=== PATIENT | male | born 1985 | race Caucasian/White ===

== ENCOUNTER 2017-07-23 13:47 | Inpatient (IN) ==
--- NOTE | 2017-07-23 14:01 | Emergency Department Note ---
Disposition Clinical Impression: Anemia Qualifiers: Anemia type: iron deficiency Iron deficiency anemia type: chronic blood loss Qualified Code(s): D50.0 - Iron deficiency anemia secondary to blood loss ( chronic) Disposition: Admitted As Inpatient Condition: Fair Referrals: Mary Saunders GRAIN MILL WORKER [Primary Care Provider] - Forms: ED Satisfaction Letter, Work/School Release General Adult HPI - General Chief complaint: ED General Medical Stated complaint: "iron deficiency hgb low" Time Seen by Provider: 07/23/17 13:51 - History of Present Illness HPI Narrative: 31 yo M c PMhx of Ulcerative Colitis, Iron Deficiency Anemia presents to the ED c/o persistently worsening fatigue and lightheadedness. Patient has chronic hematochezia secondary to UC. Patient has required transfusions in the past when living in [place]. Patient established with Dr. Riley with GI. Last Hgb 07/14 7.5 at that appointment. Pt is scheduled to start injectafer on 07/28/17 Scheduled to have Entyvio the same day. prior Hgbs in our system 05/23/17 8.9, 06/07/17 10.2, 06/08/17 8.8, 06/09/17 8.9. May Admission to [facility] for acute pancreatitis. Patient also has chronic abdominal pain secondary to his ulcerative colitis. He reports this feels like his normal pain, but overall his symptoms have been worse over the past few weeks. Gladys reports throwing up once but denies blood in vomit. Carolina reports not being fully compliant with his oral iron supplementation. Pain Scale: 4 - Related Data Previous Rx's Medication Instructions Recorded Ascorbic Acid [Vitamin C] 500 mg PO DAILY #30 tablet 06/09/17 Ferrous Sulfate 325 mg PO DAILY #30 tablet 06/09/17 Allergies Allergy/AdvReac Type Severity Reaction Status Date / Time Cefaclor [From [facility]] Allergy Anaphylaxis Verified 06/07/17 12:22 Review of Systems: As Per HPI Past Medical History - Past Medical History Medical history: Reports: other Psychiatric history: Reports: depression - Social History Smoking Status: Former smoker Smokeless Tobacco Status: No Alcohol use: Reports: none Drug use: Reports: none Physical Exam - General Limitations: no limitations General appearance: alert, in no apparent distress - Head Head exam: atraumatic, normocephalic - Eye Eye exam: Present: PERRL, other (pale conjunctiva) - ENT ENT exam: normal oropharynx, other (pale blue lips) - Neck Neck exam: Present: full ROM, trachea midline - Chest Chest inspection: Present: symmetric chest wall rise. Absent: tenderness - Respiratory Respiratory exam: Present: normal lung sounds bilaterally. Absent: respiratory distress - Cardiovascular Cardiovascular exam: Present: normal rhythm, tachycardia - Abdominal Exam Abdominal exam: Present: soft, tenderness Abdominal tenderness: Present: suprapubic (and periumbilical), mild - Extremities Exam Extremities exam: Present: full ROM. Absent: tenderness - Neurological Exam Neurological exam: Present: alert, oriented X3 - Psychiatric Psychiatric exam: Present: normal affect, normal mood - Skin Skin exam: Present: warm, dry, pallor Course Course Narrative: patient with Hx of Iron Deficiency anemia, Ulcerative colitis. Patient hgb on was 7.5 patient markedly pale. Will likely require transfusion. Will check CBC, BMP, Type and Screen. Will order 2 units PRBC after hgb result - Consultations Consultation #1: Discussed case with Patient's GI doctor Dr. Riley. He agreed that patient is symptomatic of anemia and need to be admitted for blood transfusion and IV iron. Will call hospitalist for admission. Consultation #2: Discussed case with admitting hospitalist who agreed to accept the patient for admission. Vital Signs Temperature 98.6 F 07/23/17 13:48 Pulse Rate 108 07/23/17 13:48 Respiratory Rate 16 07/23/17 13:48 Blood Pressure 110/75 07/23/17 13:48 O2 Sat by Pulse Oximetry 100 07/23/17 13:48 Temperature 98.6 F 07/23/17 13:57 Pulse Rate 108 07/23/17 13:57 Respiratory Rate 16 07/23/17 13:57 Blood Pressure 110/75 07/23/17 13:57 O2 Sat by Pulse Oximetry 100 07/23/17 13:57 Oxygen Delivery Oxygen Delivery Room Air Medical Decision Making - MDM Narrative Medical decision making narrative: patient with Hx of Iron Deficiency anemia, Ulcerative colitis. Patient hgb on was 7.5 patient markedly pale. Will likely require transfusion. Hgb 7.7 today but very symptomatic. Will admit for transfusion. Discussed case with GI who agreed patient needs to be admitted for transfusion. - Medical Records Medical records reviewed: Yes I reviewed the patient's medical records. - Lab Data Result diagrams: 07/23/17 14:08 Lab Results 07/23/17 Range/Units 14:08 WBC 7.2 (4.3-11.1) K/mcL RBC 3.82 L (4.19-5.50) M/mcL Hgb 7.7 L (12.9-16.9) g/dL Hct 27.9 L (37.5-50.1) % MCV 73.0 L (83.0-100.0) fL MCH 20.2 L (28.0-33.3) pg MCHC 27.6 L (31.6-35.5) g/dL RDW 16.8 H (11.5-14.5) % Plt Count 701 H (140-400) K/mcL MPV 9.1 L (9.4-12.4) fL Immature Gran % 0.6 (0-4) % Seg Neutrophils % 51.7 % Lymphocytes % 31.0 % Monocytes % 12.3 % Eosinophils % 3.1 % Basophils % 1.3 % Neutrophils # 3.7 (1.6-8.9) K/mcL Lymphocytes # 2.2 (0.6-4.6) K/mcL Monocytes # 0.9 (0.0-1.3) K/mcL Eosinophils # 0.2 (0.0-0.6) K/mcL Basophils # 0.1 (0.0-0.2) K/mcL Platelet Estimate Increased H (Normal) Hypochromasia Present A (Not Present) Anisocytosis 1+ A (Not Present) Attestation Statement - Attestation Attestation: I, Armando Cuba DO, examined this patient [id number] and my medical decision-making was reviewed with Farooq Biswas PGY-1, Resident Physician. I agree with the documented findings, disposition and treatment plan as described except to the extent set forth below. Please see my progress notes for details.
[2017-07-23] MEDS ORDERED: 0.9 % Sodium Chloride 1,000 ML IVC ONE (14:16)
[2017-07-23 14:26] LABS: Basophils # 0.1 K/mcL (0.0-0.2); Basophils % 1.3 %; Eosinophils # 0.2 K/mcL (0.0-0.6); Eosinophils % 3.1 %; Hematocrit 27.9 % (37.5-50.1); Hemoglobin 7.7 g/dL (12.9-16.9); Immature Granulocytes % 0.6 % (0-4); Lymphocytes # 2.2 K/mcL (0.6-4.6); Mean Corpuscular HGB Conc 27.6 g/dL (31.6-35.5); Mean Corpuscular Hemoglobin 20.2 pg (28.0-33.3); Mean Platelet Volume 9.1 fL (9.4-12.4); Monocytes # 0.9 K/mcL (0.0-1.3); Monocytes % 12.3 %; Neutrophils # 3.7 K/mcL (1.6-8.9); Platelet Count 701 K/mcL (140-400); Red Blood Count 3.82 M/mcL (4.19-5.50); Red Cell Distribution Width 16.8 % (11.5-14.5); Segmented Neutrophils % 51.7 %
[2017-07-23 14:30] LABS: Anisocytosis 1+ (Not Present); Hypochromasia Present (Not Present); Platelet Estimate Increased (Normal)
--- NOTE | 2017-07-23 14:35 | Emergency Department Note ---
Disposition Clinical Impression: Hematochezia Anemia Qualifiers: Anemia type: unspecified type Qualified Code(s): D64.9 - Anemia, unspecified Disposition: Admitted As Inpatient Condition: Fair Time of Disposition: 15:13 General Adult HPI - General Chief complaint: ED General Medical Stated complaint: "iron deficiency hgb low" Time Seen by Provider: 07/23/17 13:51 Limitations: no limitations - History of Present Illness Pain Scale: 4 - Related Data Previous Rx's Medication Instructions Recorded Ascorbic Acid [Vitamin C] 500 mg PO DAILY #30 tablet 06/09/17 Ferrous Sulfate 325 mg PO DAILY #30 tablet 06/09/17 Allergies Allergy/AdvReac Type Severity Reaction Status Date / Time Cefaclor [From [facility]] Allergy Anaphylaxis Verified 06/07/17 12:22 Past Medical History - Past Medical History Medical history: Reports: other Psychiatric history: Reports: depression - Social History Smoking Status: Former smoker Smokeless Tobacco Status: No Alcohol use: Reports: none Drug use: Reports: none Physical Exam - General Limitations: no limitations General appearance: alert, in no apparent distress Course Vital Signs Temperature 98.6 F 07/23/17 13:48 Pulse Rate 108 07/23/17 13:48 Respiratory Rate 16 07/23/17 13:48 Blood Pressure 110/75 07/23/17 13:48 O2 Sat by Pulse Oximetry 100 07/23/17 13:48 Temperature 98.6 F 07/23/17 13:57 Pulse Rate 108 07/23/17 13:57 Respiratory Rate 16 07/23/17 13:57 Blood Pressure 110/75 07/23/17 13:57 O2 Sat by Pulse Oximetry 100 07/23/17 13:57 Oxygen Delivery Oxygen Delivery Room Air Medical Decision Making - Lab Data Result diagrams: 07/23/17 14:08 Lab Results 07/23/17 07/23/17 Range/Units 14:08 14:20 WBC 7.2 (4.3-11.1) K/mcL RBC 3.82 L (4.19-5.50) M/mcL Hgb 7.7 L (12.9-16.9) g/dL Hct 27.9 L (37.5-50.1) % MCV 73.0 L (83.0-100.0) fL MCH 20.2 L (28.0-33.3) pg MCHC 27.6 L (31.6-35.5) g/dL RDW 16.8 H (11.5-14.5) % Plt Count 701 H (140-400) K/mcL MPV 9.1 L (9.4-12.4) fL Immature Gran % 0.6 (0-4) % Seg Neutrophils % 51.7 % Lymphocytes % 31.0 % Monocytes % 12.3 % Eosinophils % 3.1 % Basophils % 1.3 % Neutrophils # 3.7 (1.6-8.9) K/mcL Lymphocytes # 2.2 (0.6-4.6) K/mcL Monocytes # 0.9 (0.0-1.3) K/mcL Eosinophils # 0.2 (0.0-0.6) K/mcL Basophils # 0.1 (0.0-0.2) K/mcL Platelet Estimate Increased H (Normal) Hypochromasia Present A (Not Present) Anisocytosis 1+ A (Not Present) Blood Type O POSITIVE Critical Care Time Critical Care Time: Yes Total Critical Care Time: 35 Attestation: Critical care performed: Time is exclusive of separately billable procedures. Time includes: direct patient care, patient reassessment, coordination of patient care, interpretation of data (laboratory data, radiology data, and respiratory data), review of patient's medical records, medical consultation and documentation of patient care. Procedures included in critical care time: Procedures excluded from critical care time: Attestation Statement - Attestation Attestation: I, Armando Cuba DO, examined this patient [id number] and my medical decision-making was reviewed with Farooq Biswas PGY-1, Resident Physician. I agree with the documented findings, disposition and treatment plan as described except to the extent set forth below. Please see my progress notes for details. 31-year-old male presents emergency room for generalized weakness malaise and feeling like his lips turned blue. Patient has a history of iron deficiency anemia secondary to chronic ulcerative colitis. He is been seen and evaluated and treated by gastroenterology in the outpatient setting. He was seen earlier this week and had labs drawn. There were scheduling outpatient treatment including iron infusions as well as treatment for his ulcerative colitis. The patient has not completed any other regimen this time. He has not been diligent with his iron supplementation treatment at home by mouth as well. Patient is alert and oriented and answers questions. He is very pale on presentation. His conjunctiva spell. Oral mucosa is patent and there is a decreased color to the underside of his tongue at this point. Patient's heart rate is elevated in the 130s. Patient will be started with fluids and have CBC chemistry type and screen ordered at this time. Patient will also require transfusion admission secondary to the anemia causing symptomatic presentation. Patient is chronically losing blood per rectum. See detailed documentation of physical exam, medical intervention, medical decision-making and disposition in the resident physician's note. Patient will be provided critical care of the patient does required transfusion. 1435 Patient found to have a hemoglobin is 7.7 which is elevated compared to his previous evaluation of the gastric neurologist office. Consultation was had with gastroenterology recommended transfusing 2 units and admitting the patient secondary to symptomatic presentation. Patient is otherwise stable. 35 minutes critical care applied. Admission process to be completed.
[2017-07-23 15:33] LABS: BUN/Creatinine Ratio 15 (6-26); Blood Urea Nitrogen 15 mg/dL (6-20); Calcium 9.2 mg/dL (8.6-10.3); Carbon Dioxide 27 mEq/L (23-29); Chloride 103 mEq/L (98-107); Glucose 95 mg/dL (70-105); Osmolality,Calculated 285 (280-300); Potassium 3.8 mEq/L (3.5-5.1); Sodium 137 mEq/L (136-145); eGFR For African Americans > 60 (> 60); eGFR For Non-African Americans > 60 (> 60)
[2017-07-23] MEDS ORDERED: 0.9 % Sodium Chloride 250 ML ONE ×2 (16:31→20:09)
--- NOTE | 2017-07-23 18:18 | Internal Med History&Physical ---
Date of Encounter: 07/23/17 Time of Encounter: 07:00 Internal Medicine - H&P: HPI Chief complaint: fatigue and lightheadedness. History of present illness: Mr. Esquivel is a 31 year old male PMhx of Ulcerative Colitis, Iron Deficiency Anemia and chronic hematochezia secondary to UC presents to the ED c/o persistently worsening fatigue and lightheadedness associated with abdominal pain that is chronic UC . The patient was evaluated and his CBC revealed anemia of 7, GI was consulted and recommended admition for further evaluation. Past Med Surg Social Fam HX - Past Medical History Medical history: other Psychiatric history: depression - Social History Smoking Status: Former smoker Smokeless Tobacco Status: No Alcohol use: none Drug use: none Internal Medicine - H&P: Meds No Known Home Drugs 07/23/17 [History] 3 Allergy/AdvReac Type Severity Reaction Status Date / Time Cefaclor [From Ceclor] Allergy Anaphylaxis Verified 06/07/17 12:22 All Systems PM: A 10-system review of systems was performed and is negative for pertinent findings except as documented above in the HPI. - Constitutional Constitutional: fatigue, weakness, no chills, no fever(s), no night sweats - Cardiovascular Cardiovascular ROS IM: no chest pain, no diaphoresis, no dyspnea, no lightheadedness, no palpitations, no syncope - Respiratory Respiratory: no cough, no dyspnea, no wheezing, no excessive phlegm production - Gastrointestinal Gastrointestinal: abdominal pain, diarrhea, hematochezia, no hematemesis, no melena, no nausea, no vomiting - Neurological Neurological ROS: no confusion, no convulsions, no focal weakness, no numbness, no tingling, no tremor(s) - Constitutional Vitals: Temp Pulse Resp BP Pulse Ox 98.3 F 108 18 100/67 97 07/23/17 17:14 07/23/17 17:14 07/23/17 17:14 07/23/17 17:14 07/23/17 17:14 General appearance: Present: A&O X 3 - Head Head exam: Present: atraumatic, normocephalic - Neck Neck exam general surgery: Present: supple, trachea midline. Absent: lymphadenopathy - Respiratory Respiratory exam: Present: CTAB. Absent: accessory muscle use, rales, rhonchi, wheezes - Cardiovascular Cardiovascular exam: Present: RRR, +S1, +S2. Absent: diastolic murmur, gallop, rubs, systolic murmur - GI/Abdominal GI/Abdominal exam: Present: normal bowel sounds, soft, no peritoneal signs. Absent: distended, tenderness - Extremities Exam Extremities exam: Present: warm, radial pulses palpable and symmetrical. Absent : calf tenderness, cyanotic, pedal edema Internal Med - H&P Results - Labs CBC & Chem 7: 07/24/17 01:02 07/24/17 01:02 - Assessment and plan (1) Anemia Current Visit: Yes Status: Acute Assessment and plan: Most likely 2/2 chronic blood loss, trend H&H, consult GI Qualifiers: Anemia type: iron deficiency Iron deficiency anemia type: chronic blood loss Qualified Code(s): D50.0 - Iron deficiency anemia secondary to blood loss (chronic) (2) Ulcerative colitis Current Visit: No Status: Chronic Qualifiers: Ulcerative colitis location: unspecified ulcerative colitis location Digestive disease complication type: unspecified complication Qualified Code(s ): K51.919 - Ulcerative colitis, unspecified with unspecified complications (3) Hematochezia Current Visit: Yes Status: Acute (4) DVT prophylaxis Current Visit: Yes Status: Acute - Time Spent With Patient Total time spent is greater than 50% in coordination of care (as documented) at patient's floor/unit and/or counseling patient:
[2017-07-23] MEDS ORDERED: Naloxone 0.4 MG/ML INJ IVP PRN (18:23)
[2017-07-24 01:59] LABS: Immature Granulocytes % 0.6 % (0-4); Monocytes % 13.9 %
[2017-07-24 02:00] LABS: Basophils # 0.1 K/mcL (0.0-0.2); Eosinophils # 0.3 K/mcL (0.0-0.6); Eosinophils % 4.4 %; Hematocrit 29.2 % (37.5-50.1); Hemoglobin 8.7 g/dL (12.9-16.9); Lymphocytes # 1.7 K/mcL (0.6-4.6); Lymphocytes % 24.2 %; Mean Corpuscular HGB Conc 29.8 g/dL (31.6-35.5); Mean Corpuscular Hemoglobin 22.5 pg (28.0-33.3); Mean Corpuscular Volume 75.6 fL (83.0-100.0); Mean Platelet Volume 9.1 fL (9.4-12.4); Nucleated Red Blood Cells 0.3 /100 WBC (0); Platelet Count 502 K/mcL (140-400); Red Blood Count 3.86 M/mcL (4.19-5.50); Segmented Neutrophils % 55.9 %
[2017-07-24 02:11] LABS: Prothrombin Time 10.5 Seconds (9.4-12.1)
[2017-07-24 02:16] LABS: Alanine Aminotransferase 7 Units/L (7-52); Albumin/Globulin Ratio 1.1 (1.1-2.2); Alkaline Phosphatase 49 Units/L (34-104); Aspartate Amino Transferase 10 Units/L (13-39); BUN/Creatinine Ratio 16 (6-26); Bilirubin,Total 0.2 mg/dL (0.3-1.0); Blood Urea Nitrogen 13 mg/dL (6-20); Calcium 8.6 mg/dL (8.6-10.3); Carbon Dioxide 24 mEq/L (23-29); Chloride 111 mEq/L (98-107); Chol/HDL Ratio 3.3 (0-4.9); Cholesterol 137 mg/dL (< 200); Globulin 2.8 g/dL (2.4-3.5); Glucose 98 mg/dL (70-105); HDL Cholesterol 42 mg/dL (40-59); LDL Cholesterol,Calculated 82 mg/dL (0-99); Magnesium 1.9 mg/dL (1.6-2.6); Osmolality,Calculated 292 (280-300); Phosphorous 4.8 mg/dL (2.7-4.5); Potassium 4.1 mEq/L (3.5-5.1); Sodium 141 mEq/L (136-145); Total Protein 5.8 g/dL (6.4-8.9); Triglycerides 67 mg/dL (< 150); eGFR For African Americans > 60 (> 60); eGFR For Non-African Americans > 60 (> 60)
[2017-07-24 02:32] LABS: Hypochromasia Present (Not Present); Macrocytosis Present (Not Present); Polychromasia 1+ (Not Present)
[2017-07-24 02:33] LABS: Anisocytosis 1+ (Not Present); Microcytosis Present (Not Present)
[2017-07-24 02:34] LABS: Platelet Estimate Increased (Normal)
[2017-07-24] MEDS ORDERED: Simethicone 80 MG TAB.CHEW PO PRN (04:21)
[2017-07-24] MEDS ORDERED: *HR* Heparin 5,000 UNIT/ML VIAL SQ SCH (06:00)
[2017-07-24 10:24] VITALS: BP 104/68
--- NOTE | 2017-07-24 10:41 | Discharge Summary ---
- NOTES TO OUTPATIENT PROVIDER Notes to Outpatient Provider: Repeat CBC in 2-3 days Orders not resulted at time of discharge: Pending orders 07/24/17 04:00 Urinalysis reflex Microscopic [URIN] AM 0400 07/24/17 12:00 HH [Hemoglobin and Hematocrit] [HEME] Timed Date of Encounter: 07/24/17 Time of Encounter: 10:38 - Discharge Diagnosis (1) Anemia Priority: Primary Status: Acute Assessment and Plan: Most likely 2/2 chronic blood loss, trend H&H, consult GI GI recommended PRBC and iron transfusion. Patient currently hemoglobin improved from 7.7 to now 8.7 after finsihing 2 units that ended around 0030. No acute issues and symptoms have resolved. Hemodynamically stable. Blood bank informed me there is no set amount of time patient needs to be monitored after transfusion. Will repeat H&H today at 1200. If it is >8.5 which is near baseline, okay for DC today. Qualifiers: Anemia type: iron deficiency Iron deficiency anemia type: chronic blood loss Qualified Code(s): D50.0 - Iron deficiency anemia secondary to blood loss (chronic) (2) Ulcerative colitis Priority: Secondary Status: Chronic Qualifiers: Ulcerative colitis location: unspecified ulcerative colitis location Digestive disease complication type: unspecified complication Qualified Code(s ): K51.919 - Ulcerative colitis, unspecified with unspecified complications (3) Hematochezia Priority: Secondary Status: Acute (4) DVT prophylaxis Priority: Secondary Status: Acute Hospital course: Mr. Esquivel is a 31 year old male PMhx of Ulcerative Colitis, Iron Deficiency Anemia and chronic hematochezia secondary to UC presents to the ED c/o persistently worsening fatigue and lightheadedness associated with abdominal pain that is chronic UC . The patient was evaluated and his CBC revealed anemia of 7.7, GI was consulted and recommended admition for further evaluation. Per ED reports, they spoke to Dr. Riley who stated patient should have transfuse of red blood cells and iron. He was given 2 units of PRBC. Recheck of H&H stable at 8.7 and 8.6. Patient no longer symptomatic and discharged home in stable condition. Patient refused iron transfusion because he states he is scheduled to receive iron transfusion in four days. - Time Spent with Patient Total time spent providing and/or coordinating discharge services: - Discharge Medications Home Medications: No Known Home Drugs 07/23/17 [History] Allergies/Adverse Reactions: 3 Allergy/AdvReac Type Severity Reaction Status Date / Time Cefaclor [From Ceclor] Allergy Anaphylaxis Verified 06/07/17 12:22 Date of admission: 07/23/17 18:24 Primary care physician: Mary Saunders Discharging clinician: Brett Shannon - Constitutional Vitals: Temp Pulse Resp BP Pulse Ox 98.1 F 92 16 104/68 98 07/24/17 10:21 07/24/17 10:21 07/24/17 10:21 07/24/17 10:21 07/24/17 10:21 General appearance: Present: A&O X 3 - Head Head exam: Present: atraumatic, normocephalic - Eye Eye exam: Present: PERRL, conjuntiva pink, sclera anicteric Pupils: Present: PERRL - Neck Neck exam general surgery: Present: supple, trachea midline. Absent: lymphadenopathy - Respiratory Respiratory exam: Present: CTAB. Absent: accessory muscle use, rales, rhonchi, wheezes - Cardiovascular Cardiovascular exam: Present: RRR, +S1, +S2. Absent: diastolic murmur, gallop, rubs, systolic murmur - GI/Abdominal GI/Abdominal exam: Present: normal bowel sounds, soft, no peritoneal signs. Absent: distended, tenderness - Extremities Exam Extremities exam: Present: warm, radial pulses palpable and symmetrical. Absent : calf tenderness, cyanotic, pedal edema - Neurological Exam Neurological exam: Present: CN II-XII intact, oriented X3, no focal deficits. Absent: pronater drift, facial droop, speech deficit - Skin Skin exam: Present: dry, intact - Patient Status Disposition: Home, Self-Care Condition: Fair Functional capacity at discharge: independent ambulation Overall status at discharge: patient is back to baseline - Discharge Instructions Follow Up With: Mary Saunders STUDENT ACCOUNTS MANAGER [Primary Care Provider] - - Diet and Activity Activity: increase activity as tolerated Diet: advance to your usual diet
[2017-07-24 11:59] LABS: Hematocrit 28.8 % (37.5-50.1); Hemoglobin 8.6 g/dL (12.9-16.9)
== END 2017-07-24 12:35 | disposition home or self-care (01) | DRG 663 ==
LOC: 3ANU 13:47 → EMEROO 13:47 → 3ANU 15:48
PROVIDERS: ADMIT Hospitalist; ATTEND Hospitalist